=== PATIENT | female | born 1985 | race African-American/Black ===

== ENCOUNTER 2020-10-19 19:49 | Emergency (ER) | payer MEDICAID ==
[~2020-10-19] VITALS: Ht 162.6 cm; Wt 78.0 kg
[~2020-10-19 19:49] MED LIST: FLUO10CA24 PO; HYDR-4031 PO; LURA40TA2 PO; QUET200T PO
[2020-10-19 19:58] VITALS: BP 124/90
== END 2020-10-20 02:23 | disposition left against medical advice (07) ==
LOC: EMS 19:58
DX: Z76.0 Encounter for issue of repeat prescription (principal); Z53.21 Procedure and treatment not carried out due to patient leaving prior to being seen by health care provider